=== PATIENT | male | born 1975 ===

== ENCOUNTER 2018-01-24 15:14 | Emergency (ER) | payer OTHER ==
[2018-01-24] MEDS ORDERED: Aspirin 81 MG Tab.Chew PO ONE (15:31)
[2018-01-24] MEDS ORDERED: Sodium Chloride 0.9% 10 ML Syringe FLUSH PRN (15:31)
[2018-01-24] MEDS ORDERED: Famotidine 20 MG/2 ML SDV IVPUSH ONE (15:32)
[2018-01-24] MEDS ORDERED: Alum Hydrox/Mag Hydrox/Simeth 30 ML, Lidocaine 2% 15 ML PO ONE ×2 (15:32)
--- NOTE | 2018-01-24 16:10 | CR ---
Chest: Portable view of the chest was obtained. Comparison: No prior chest x-ray. Heart size and mediastinum are normal. Lungs are clear. Bony structures are grossly intact. Impression: 1. Nothing acute is seen on portable chest x-ray. Diagnostic code #1
[2018-01-24] MEDS ORDERED: Iopamidol 755 MG/ML 50 ML Bottle IVPUSH ONE (16:37)
[2018-01-24] MEDS ORDERED: Sodium Chloride 0.9% 10 ML Syringe FLUSH ONE (16:37)
[2018-01-24] MEDS ORDERED: Iopamidol 755 Mg/ML 100 ML Bottle IVPUSH ONE (16:37)
[2018-01-24] MEDS ORDERED: Sodium Chloride 0.9% 100 ML IV SCH (16:45)
--- NOTE | 2018-01-24 18:46 | EDM.PDOC ---
ED HPI GENERAL MEDICAL PROBLEM - General Chief Complaint: Chest Pain Stated Complaint: CHEST PAIN Time Seen by Provider: 01/24/18 15:27 Source of Information: Reports: Patient History Limitations: Reports: No Limitations - History of Present Illness INITIAL COMMENTS - FREE TEXT/NARRATIVE: The patient presents with chest pain. This started yesterday. It is located in the right side and it radiates to the left shoulder. He has a cough and he is a little short of breath with it. He has some chills but no fever. He has no abdominal pain, nausea or vomiting. He has no diarrhea. He has no history of heart disease, HTN, hypercholesterolemia and diabetes. He does smoke. Onset: Gradual Duration: Day(s): (Yesterday) Location: Reports: Chest Quality: Reports: Sharp Severity: Moderate Improves with: Reports: None Worsens with: Reports: Breathing Associated Symptoms: Reports: Chest Pain, Cough, Fever/Chills, Shortness of Breath. Denies: Headaches, Nausea/Vomiting Right Chest Pain Score (Numeric/FACES): 7 - Related Data Allergies Allergy/AdvReac Type Severity Reaction Status Date / Time No Known Allergies Allergy Verified 01/24/18 17:09 Home Meds: Home Meds Azithromycin [IJD: Azithromycin] 250 mg PO DAILY #6 tab 01/24/18 [Rx] Codeine/Promethazine [Phenergan with Codeine] 5 - 10 ml PO Q6HR PRN #240 ml 01/12 [Rx] Hydrocodone/Acetaminophen [Hydrocodon-Acetaminophen 5-325] 1 - 2 each PO Q6HR PRN #10 tablet 01/24/18 [Rx] Past Medical History Musculoskeletal History: Reports: Fracture, Other (See Below) Other Musculoskeletal History: legs and arms torn ACL Social & Family History - Family History Family Medical History: Noncontributory - Tobacco Use Smoking Status *Q: Unknown Ever Smoked - Caffeine Use Caffeine Use: Reports: None - Recreational Drug Use Recreational Drug Use: No ED ROS GENERAL - Review of Systems Review Of Systems: See Below Constitutional: Reports: No Symptoms HEENT: Reports: No Symptoms Respiratory: Reports: Shortness of Breath, Cough Cardiovascular: Reports: Chest Pain Endocrine: Reports: No Symptoms GI/Abdominal: Reports: No Symptoms : Reports: No Symptoms Musculoskeletal: Reports: No Symptoms Skin: Reports: No Symptoms Neurological: Reports: No Symptoms ED EXAM, GENERAL - Physical Exam Exam: See Below Exam Limited By: No Limitations General Appearance: Alert, No Apparent Distress Ears: Normal External Exam Nose: Normal Inspection Head: Atraumatic, Normocephalic Neck: Normal Inspection Respiratory/Chest: No Respiratory Distress, Lungs Clear, Normal Breath Sounds Cardiovascular: Regular Rate, Rhythm, No Edema, No Murmur GI/Abdominal: Soft, Non-Tender, No Organomegaly, No Mass Back Exam: Normal Inspection Extremities: Normal Inspection EKG INTERPRETATION EKG Date: 01/24/18 Time: 15:29 Rhythm: NSR Rate (Beats/Min): 81 [place]: Normal P-Wave: Present QRS: Normal ST-T: Other (T wave inversions inferior leads) QT: Normal Course - Vital Signs Last Recorded V/S: Last Vital Signs Temp 98.7 F 01/24/18 15:25 Pulse 76 01/24/18 15:25 Resp 18 01/24/18 15:25 BP 139/87 01/24/18 15:25 Pulse Ox 97 01/24/18 15:25 - Orders/Labs/Meds Orders: Active Orders 24 hr Category Date Time Status Cardiac Monitoring [RC] . DIRECTED Care 01/24/18 15:31 Active EKG 12 Lead [EKG Documentation Completion] [RC] STAT Care 01/24/18 15:29 Active Peripheral IV Care [RC] . DIRECTED Care 01/24/18 15:32 Active Ang Chest [CT] Stat Exams 01/24/18 16:33 Taken Sodium Chloride 0.9% [Normal Saline] 100 ml Med 01/24/18 16:45 Active IV ASDIRECTED Sodium Chloride 0.9% [Saline Flush] Med 01/24/18 15:31 Active 10 ml FLUSH ASDIRECTED PRN Peripheral IV Insertion Adult [OM.PC] Stat Oth 01/24/18 15:31 Ordered Medication Orders Sodium Chloride (Normal Saline) 100 mls @ 60 mls/hr IV ASDIRECTED VIOLET Last Admin: 01/24/18 16:51 Dose: 60 mls/hr Sodium Chloride (Saline Flush) 10 ml FLUSH ASDIRECTED PRN PRN Reason: Keep Vein Open Last Admin: 01/24/18 15:40 Dose: 10 ml Labs: Laboratory Tests 03/02/18 03/02/18 03/02/18 Range/Units 15:30 15:30 15:30 WBC 13.38 H (4.23-9.07) K/mm3 RBC 4.89 (4.63-6.08) M/mm3 Hgb 15.4 (13.7-17.5) gm/L Hct 44.8 (40.1-51.0) % MCV 91.6 (79.0-92.2) fl MCH 31.5 (25.7-32.2) pg MCHC 34.4 (32.2-35.5) g/dl RDW Std Deviation 44.1 H (35.1-43.9) fL Plt Count 332 (163-337) K/mm3 MPV 9.2 L (9.4-12.3) fl Neut % (Auto) 59.9 (34.0-67.9) % Lymph % (Auto) 24.4 (21.8-53.1) % [place] % (Auto) 10.5 (5.3-12.2) % Eos % (Auto) 4.6 (0.8-7.0) Baso % (Auto) 0.4 (0.1-1.2) % Neut # (Auto) 8.01 H (1.78-5.38) K/mm3 Lymph # (Auto) 3.26 (1.32-3.57) K/mm3 [place] # (Auto) 1.41 H (0.30-0.82) K/mm3 Eos # (Auto) 0.61 H (0.04-0.54) K/mm3 Baso # (Auto) 0.06 (0.01-0.08) K/mm3 D-Dimer, Quantitative 0.72 H (0.19-0.59) mg/L Sodium 139 (136-145) mEq/L Potassium 3.2 L (3.5-5.1) mEq/L Chloride 102 (98-107) mEq/L Carbon Dioxide 26 (21-32) mEq/L Anion Gap 14.2 (5-15) BUN 8 (7-18) mg/dL Creatinine 1.1 (0.7-1.3) mg/dL Est Cr Clr Drug Dosing 92.22 mL/min Estimated GFR (MDRD) > 60 (>60) mL/min BUN/Creatinine Ratio 7.3 L (14-18) Glucose 152 H (74-106) mg/dL Calcium 8.8 (8.5-10.1) mg/dL Total Bilirubin 0.5 (0.2-1.0) mg/dL AST 47 H (15-37) U/L ALT 40 (16-63) U/L Alkaline Phosphatase 117 H (46-116) U/L Troponin I < 0.017 (0.00-0.056) ng/mL Total Protein 7.5 (6.4-8.2) g/dl Albumin 3.5 (3.4-5.0) g/dl Globulin 4.0 gm/dL Albumin/Globulin Ratio 0.9 L (1-2) 01/24/18 Range/Units 18:05 WBC (4.23-9.07) K/mm3 RBC (4.63-6.08) M/mm3 Hgb (13.7-17.5) gm/L Hct (40.1-51.0) % MCV (79.0-92.2) fl MCH (25.7-32.2) pg MCHC (32.2-35.5) g/dl RDW Std Deviation (35.1-43.9) fL Plt Count (163-337) K/mm3 MPV (9.4-12.3) fl Neut % (Auto) (34.0-67.9) % Lymph % (Auto) (21.8-53.1) % [place] % (Auto) (5.3-12.2) % Eos % (Auto) (0.8-7.0) Baso % (Auto) (0.1-1.2) % Neut # (Auto) (1.78-5.38) K/mm3 Lymph # (Auto) (1.32-3.57) K/mm3 [place] # (Auto) (0.30-0.82) K/mm3 Eos # (Auto) (0.04-0.54) K/mm3 Baso # (Auto) (0.01-0.08) K/mm3 D-Dimer, Quantitative (0.19-0.59) mg/L Sodium (136-145) mEq/L Potassium (3.5-5.1) mEq/L Chloride (98-107) mEq/L Carbon Dioxide (21-32) mEq/L Anion Gap (5-15) BUN (7-18) mg/dL Creatinine (0.7-1.3) mg/dL Est Cr Clr Drug Dosing mL/min Estimated GFR (MDRD) (>60) mL/min BUN/Creatinine Ratio (14-18) Glucose (74-106) mg/dL Calcium (8.5-10.1) mg/dL Total Bilirubin (0.2-1.0) mg/dL AST (15-37) U/L ALT (16-63) U/L Alkaline Phosphatase (46-116) U/L Troponin I < 0.017 (0.00-0.056) ng/mL Total Protein (6.4-8.2) g/dl Albumin (3.4-5.0) g/dl Globulin gm/dL Albumin/Globulin Ratio (1-2) Meds: Medications Generic Name Dose Route Start Last Admin Trade Name Freq PRN Reason Stop Dose Admin Sodium Chloride 100 mls @ 60 mls/hr 01/24/18 16:45 01/24/18 16:51 Normal Saline IV 60 mls/hr ASDIRECTED VIOLET Administration Sodium Chloride 10 ml 01/24/18 15:31 01/24/18 15:40 Saline Flush FLUSH 10 ml ASDIRECTED PRN Administration Keep Vein Open Discontinued Medications Generic Name Dose Route Start Last Admin Trade Name Freq PRN Reason Stop Dose Admin Aspirin 324 mg 01/24/18 15:31 01/24/18 15:38 Aspirin PO 01/24/18 15:32 324 mg ONETIME ONE Administration Al Hydroxide/Mg Hydroxide 30 0 ml 01/24/18 15:32 01/24/18 15:39 ml/ Lidocaine HCl 15 ml PO 01/24/18 15:33 45 ml ONETIME ONE Administration Famotidine 20 mg 01/24/18 15:32 01/24/18 15:38 Pepcid IVPUSH 01/24/18 15:33 20 mg ONETIME ONE Administration Iopamidol 50 ml 01/24/18 16:37 01/24/18 16:50 Isovue-370 (76%) IVPUSH 01/24/18 16:38 10 ml ONETIME ONE Administration Iopamidol 100 ml 01/24/18 16:37 01/24/18 16:50 Isovue-370 (76%) IVPUSH 01/24/18 16:38 70 ml ONETIME ONE Administration Sodium Chloride 10 ml 01/24/18 16:37 01/24/18 16:50 Saline Flush FLUSH 01/24/18 16:38 10 ml ONETIME ONE Administration - Re-Assessments/Exams Free Text/Narrative Re-Assessment/Exam: 01/24/18 18:56 I ordered an IV saline lock, EKG, CXR, labs, aspirin, pepcid and GI cocktail. His EKG shows a NSR with some flipped T waves in the inferior leads. His CXR looks good. 01/24/18 18:58 His WBC was elevated at 13.78. His D-dimer is elevated at 0.72. His K was low at 3.2. His glucose was elevated at 152. His AST was elevated at 47. His Alk phos was elevated at 117. His troponin was negative. The CT of his chest shows no PE, linear atelectasis/scarring at each lung base, goiter, enlarged bilateral hilar and mediastinal lymph nodes. These are indeterminate, possibly reactive. There is a small right pleural effusion. I did a troponin that was negative and a repeat troponin that was negative. I feel he has bronchitis with chest wall pain. I will get him on some antibiotics and some phenergan with codeine for the cough. Departure - Departure Time of Disposition: 19:05 Disposition: Home, Self-Care 01 Condition: Good Clinical Impression: Chest wall pain, Bronchitis, Goiter Prescriptions: Codeine/Promethazine [Phenergan with Codeine] 5 - 10 ml PO Q6HR PRN #240 ml PRN Reason: Cough Hydrocodone/Acetaminophen [Hydrocodon-Acetaminophen 5-325] 1 - 2 each PO Q6HR PRN #10 tablet PRN Reason: Pain Azithromycin [IJD: Azithromycin] 250 mg PO DAILY #6 tab Referrals: PCP,None [Primary Care Provider] - Ivy Wiley MD [Physician] - 1 Week Forms: ED Department Discharge Additional Instructions: Take your medication as prescribed. Please return if you are worse. Your thyroid was slightly enlarged. Please follow up with Dr Wiley in 1 week. - My Orders Last 24 Hours: My Active Orders 01/24/18 15:29 EKG 12 Lead [EKG Documentation Completion] [RC] STAT 01/24/18 15:31 Cardiac Monitoring [RC] . DIRECTED Sodium Chloride 0.9% [Saline Flush] 10 ml FLUSH ASDIRECTED PRN Peripheral IV Insertion Adult [OM.PC] Stat 01/24/18 15:32 Peripheral IV Care [RC] . DIRECTED 01/24/18 16:33 Ang Chest [CT] Stat 01/24/18 16:45 Sodium Chloride 0.9% [Normal Saline] 100 ml IV ASDIRECTED - Assessment/Plan Last 24 Hours: My Active Orders 01/24/18 15:29 EKG 12 Lead [EKG Documentation Completion] [RC] STAT 01/24/18 15:31 Cardiac Monitoring [RC] . DIRECTED Sodium Chloride 0.9% [Saline Flush] 10 ml FLUSH ASDIRECTED PRN Peripheral IV Insertion Adult [OM.PC] Stat 01/24/18 15:32 Peripheral IV Care [RC] . DIRECTED 01/24/18 16:33 Ang Chest [CT] Stat 01/24/18 16:45 Sodium Chloride 0.9% [Normal Saline] 100 ml IV ASDIRECTED
--- NOTE | 2018-01-25 14:31 | CT ---
CT chest Technique: Multiple axial sections through the chest were obtained. Intravenous contrast was utilized. Study has been performed as a pulmonary angiogram protocol. Findings: Pulmonary arteries are well-opacified. No filling defects are seen to indicate pulmonary embolism. Aorta shows no aneurysm or dissection. Slightly prominent lymph nodes are seen within the hilum on both sides. Small lymph nodes noted within the mediastinum which are felt to be within normal limits. Thyroid gland is diffusely enlarged. No pericardial thickening is seen. Small portion of visualized upper abdominal structures are normal. Trace right-sided pleural effusion is seen. Lungs show no acute parenchymal densities. Bone window settings were reviewed which appear within normal limits for the patient's age. Impression: 1. No findings of pulmonary embolism. Aorta shows no aneurysm or dissection. 2. Diffuse enlargement of the thyroid gland. 3. Slightly prominent lymph nodes within both hilar regions most likely reactive from previous inflammatory process. 4. Trace right-sided pleural effusion. Diagnostic code #2 I agree with preliminary report issued by [employer] ([place]) ([facility] report finalized on 01/24/18, 6:10 PM Central Time)
== END 2018-01-24 19:27 | disposition home or self-care (01) ==
LOC: JD.ED 15:14
DX: J40 Bronchitis, not specified as acute or chronic (principal); J90 Pleural effusion, not elsewhere classified; E04.9 Nontoxic goiter, unspecified; F17.200 Nicotine dependence, unspecified, uncomplicated; Z79.2 Long term (current) use of antibiotics
CPT/HCPCS: 36415; 71045; 71275; 80053; 84443; 84484; 85025; 85379; 93005; 96374; 99285; A9270; J7030; J7050; Q9967; 99284